=== PATIENT | male | born 1990 | race Two or more races ===

== ENCOUNTER 2016-09-12 20:33 | Inpatient (IN) | payer SELFPAY ==
[~2016-09-12] VITALS: Ht 188 cm; Wt 94.3 kg
[2016-09-12] MEDS ORDERED: IV SET PRIMARY 1 EA INFUS.SET MC ONE (21:56)
[2016-09-12] MEDS ORDERED: IV NS 0.9% 100 ML IV ONE (21:56)
[2016-09-12] MEDS ORDERED: PANTOPRAZOLE 40 MG VIAL ONE (21:56)
[2016-09-12] MEDS ORDERED: PANTOPRAZOLE 80 MG in IV NS 0.9% 500 ML IV ONE (22:00)
[2016-09-12 22:11] LABS: BASOPHILS # (AUTO) 0.1 /CMM (0.0-0.2); BASOPHILS % (AUTO) 0.9 % (0.0-2.0); DIFF TOTAL % 100 %; EOSINOPHILS # (AUTO) 0.1 /CMM (0.0-0.7); EOSINOPHILS % (AUTO) 0.6 % (0.0-6.0); HEMATOCRIT 41 % (39-51); HEMOGLOBIN 13.3 g/dL (13.5-17.5); LYMPHOCYTES # (AUTO) 2.5 /CMM (0.8-4.8); LYMPHOCYTES % (AUTO) 25.2 % (20.0-44.0); MEAN CORPUSCULAR HEMOGLOBIN 26 PG (26.0-33.0); MEAN CORPUSCULAR HGB CONC 33 g/dl (31.0-36.0); MEAN CORPUSCULAR VOLUME 81 fL (80-96); MONOCYTES # (AUTO) 0.7 /CMM (0.1-1.30); MONOCYTES % (AUTO) 7.1 % (2.0-12.0); NEUTROPHILS # (AUTO) 6.5 /CMM (1.8-8.9); NEUTROPHILS % (AUTO) 66.2 % (43.0-81.0); PLATELET COUNT (AUTO) 299 /CMM (150-450); RED BLOOD CELL COUNT(AUTO) 5.04 MIL/uL (4.5-6.0); WHITE BLOOD COUNT (AUTO) 9.8 K/uL (4.3-11.0)
[2016-09-12 22:21] LABS: CALCIUM, SERUM 9.7 mg/dL (8.5-10.1); CREATININE 0.8 mg/dL (0.6-1.3)
[2016-09-12 22:25] LABS: INR 0.99 (0.87-1.13); PROTHROMBIN TIME 10.7 SECS (9.5-12.7)
[2016-09-12 22:26] LABS: ALBUMIN 3.9 g/dL (3.4-5.0); BILIRUBIN,DIRECT 0.1 mg/dL (0.0-0.2); BILIRUBIN,TOTAL 0.3 mg/dL (0.2-1.0); INDIRECT BILIRUBIN 0.2 mg/dL (0.0-1.1); TOTAL PROTEIN, SERUM 8.7 g/dL (6.4-8.2)
[2016-09-12] MEDS ORDERED: LORAZEPAM INJ 2 MG/ML VIAL ONE (22:28)
[2016-09-12] MEDS ORDERED: LORAZEPAM INJ 2 MG/ML VIAL IV ONE (22:30)
[2016-09-12] MEDS ORDERED: PANTOPRAZOLE 80 MG in IV NS 0.9% 100 ML IV ONE (22:30)
[2016-09-12 22:45] VITALS: BP 133/71
[2016-09-12 23:00] VITALS: BP 133/71
[2016-09-12] MEDS: PANTOPRAZOLE 40 MG VIAL IV SCH (23:30)
[2016-09-12] MEDS ORDERED: Z GUARD REMEDY 2 OZ OINT TP PRN (23:30)
[2016-09-12] MEDS ORDERED: MAGNESIUM HYDROXIDE 30 ML UDC PO PRN (23:30)
[2016-09-12] MEDS ORDERED: ONDANSETRON HCL/PF 4 MG/2 ML VIAL IVP PRN (23:30)
[2016-09-12] MEDS ORDERED: MAG HYDROX/AL HYDROX/SIMETH 30 ML UDC PO PRN (23:30)
[2016-09-12] MEDS ORDERED: ACETAMINOPHEN 325 MG TABLET PO PRN (23:30)
[2016-09-12] MEDS ORDERED: IV SET PRIMARY PUMP SET 1 EA INFUS.SET MC ONE (23:40)
[2016-09-12] MEDS ORDERED: IV D5/0.45 NACL 1,000 ML IV ONE (23:41)
[2016-09-12] MEDS: IV D5/0.45 NACL 1,000 ML IV PRN (23:48)
[2016-09-13] MEDS ORDERED: ONDANSETRON HCL/PF 4 MG/2 ML VIAL ONE (01:21)
[2016-09-13 04:00] VITALS: BP 133/75
[2016-09-13 08:00] VITALS: BP 119/72
[2016-09-13] MEDS: PANTOPRAZOLE 40 MG VIAL IV SCH ×2 (08:31→16:09)
[2016-09-13] MEDS ORDERED: PANT40TA2 PO (10:21)
[2016-09-13] MEDS ORDERED: IV SET PRIMARY PUMP SET 1 EA INFUS.SET MC ONE (15:20)
[2016-09-13 16:00] VITALS: BP 123/69
[2016-09-13] MEDS: IV D5/0.45 NACL 1,000 ML IV PRN (16:10)
[2016-09-13 16:16] LABS: BASOPHILS # (AUTO) 0.1 /CMM (0.0-0.2); BASOPHILS % (AUTO) 1.2 % (0.0-2.0); DIFF TOTAL % 100 %; EOSINOPHILS # (AUTO) 0.1 /CMM (0.0-0.7); HEMATOCRIT 42 % (39-51); HEMOGLOBIN 13.6 g/dL (13.5-17.5); LYMPHOCYTES # (AUTO) 1.4 /CMM (0.8-4.8); LYMPHOCYTES % (AUTO) 23.7 % (20.0-44.0); MEAN CORPUSCULAR HEMOGLOBIN 27 PG (26.0-33.0); MEAN CORPUSCULAR HGB CONC 33 g/dl (31.0-36.0); MEAN CORPUSCULAR VOLUME 81 fL (80-96); MONOCYTES # (AUTO) 0.4 /CMM (0.1-1.30); MONOCYTES % (AUTO) 7.1 % (2.0-12.0); NEUTROPHILS # (AUTO) 3.9 /CMM (1.8-8.9); PLATELET COUNT (AUTO) 262 /CMM (150-450); RED BLOOD CELL COUNT(AUTO) 5.15 MIL/uL (4.5-6.0); WHITE BLOOD COUNT (AUTO) 5.9 K/uL (4.3-11.0)
[2016-09-13 16:34] LABS: INR 1.02 (0.87-1.13)
[2016-09-13 16:47] LABS: ALBUMIN 3.8 g/dL (3.4-5.0); BILIRUBIN,TOTAL 0.4 mg/dL (0.2-1.0); CALCIUM, SERUM 9.1 mg/dL (8.5-10.1); CREATININE 1.1 mg/dL (0.6-1.3); PHOSPHORUS 4.1 mg/dL (2.5-4.9); POTASSIUM 3.7 mmol/L (3.5-5.1); TOTAL PROTEIN, SERUM 8.6 g/dL (6.4-8.2)
[2016-09-13 16:54] LABS: THYROID STIMULATING HORMONE 0.158 uIU/mL (0.358-3.74)
[2016-09-13 17:51] LABS: ERYTHROCYTE SEDIMENTATION RATE 38 MM/HR (0-15)
[2016-09-13 18:22] LABS: LYMPHOCYTES % (MANUAL) 25 % (16-48)
[2016-09-13 18:23] LABS: ANISOCYTOSIS 1+; EOSINOPHILS % (MANUAL) 1 % (0-4); HYPOCHROMASIA 1+; PLATELET ESTIMATE ADEQUATE
[2016-09-13 20:00] VITALS: BP 132/64
[2016-09-13 22:00] VITALS: BP 132/64
[2016-09-14 08:00] VITALS: BP 118/65
[2016-09-14 08:25] LABS: BASOPHILS % (AUTO) 0.5 % (0.0-2.0); DIFF TOTAL % 100 %; EOSINOPHILS # (AUTO) 0.1 /CMM (0.0-0.7); EOSINOPHILS % (AUTO) 1.8 % (0.0-6.0); HEMATOCRIT 41 % (39-51); HEMOGLOBIN 13.4 g/dL (13.5-17.5); LYMPHOCYTES % (AUTO) 29.1 % (20.0-44.0); MEAN CORPUSCULAR HEMOGLOBIN 27 PG (26.0-33.0); MEAN CORPUSCULAR HGB CONC 33 g/dl (31.0-36.0); MEAN CORPUSCULAR VOLUME 81 fL (80-96); MONOCYTES # (AUTO) 0.5 /CMM (0.1-1.30); MONOCYTES % (AUTO) 7.4 % (2.0-12.0); NEUTROPHILS # (AUTO) 4.3 /CMM (1.8-8.9); NEUTROPHILS % (AUTO) 61.2 % (43.0-81.0); PLATELET COUNT (AUTO) 259 /CMM (150-450); RED BLOOD CELL COUNT(AUTO) 5.07 MIL/uL (4.5-6.0)
[2016-09-14 09:08] LABS: IRON, SERUM 95 ug/dl (50-175); PERCENT SATURATION 25 % (14-33); TOTAL IRON BINDING CAPACITY 386 ug/dl (250-450)
[2016-09-14] MEDS: PANTOPRAZOLE 40 MG VIAL IV SCH (09:23)
== END 2016-09-14 11:30 | DRG 370 ==
LOC: ER 20:37 → TELE 22:47 → MED 09-13 10:18
PROVIDERS: ADMIT Internal Medicine; ATTEND Internal Medicine
DX: K22.6 Gastro-esophageal laceration-hemorrhage syndrome (principal); F19.90 Other psychoactive substance use, unspecified, uncomplicated; Z87.11 Personal history of peptic ulcer disease; I50.9 Heart failure, unspecified; F11.10 Opioid abuse, uncomplicated; I25.5 Ischemic cardiomyopathy; F41.9 Anxiety disorder, unspecified; F10.20 Alcohol dependence, uncomplicated
CPT/HCPCS: 36415; 71010-TC; 74150-TC; 76700-TC; 80048-TC; 80053-TC; 80061-TC; 80076-TC; 82150-TC; 82553-TC; 82746; 83540-TC; 83690-TC; 83735-TC; 84100-TC; 84443-TC; 85025-TC; 85045-TC; 85652-TC; 85730-TC; 86850-TC; 87081-TC; 93307-TC; A4606; C9113; J2060; J2405; J3490; J7030; Z7610

== ENCOUNTER 2020-01-07 10:33 | Emergency (ER) | payer OTHER ==
[~2020-01-07] VITALS: Ht 188 cm; Wt 95.3 kg
[~2020-01-07 10:33] MED LIST: PANT40TA2 PO
--- NOTE | 2020-01-07 11:15 | NUR ---
[employer]PRES[employer]IVE AT BEDSIDE FOR XRAY.
--- NOTE | 2020-01-07 12:00 | NUR ---
Patient discharged in custody in stable condition. Written and verbal after care instructions given. Patient verbalizes understanding of instruction.
[2020-01-07 12:01] VITALS: BP 128/80
== END 2020-01-07 12:01 | disposition home or self-care (01) ==
LOC: ER 10:36
DX: Z02.89 Encounter for other administrative examinations (principal)
CPT/HCPCS: 74018

== ENCOUNTER 2023-05-28 00:21 | Emergency (ER) | payer OTHER ==
[~2023-05-28] VITALS: Ht 188 cm; Wt 95.3 kg
[2023-05-28 00:30] VITALS: TEMP 98
[2023-05-28 04:33] VITALS: BP 129/81; O2SAT 97
== END 2023-05-28 02:03 ==
LOC: ER 00:28
DX: R05.9 Cough, unspecified (principal); Z79.899 Other long term (current) drug therapy
CPT/HCPCS: 71045-TC